=== PATIENT | female | born 2000 | race Caucasian/White ===

== ENCOUNTER 2020-07-22 17:43 | Emergency (ER) | payer BC, OTHER ==
[2020-07-22] MEDS ORDERED: IBUPROFEN 400 MG TABLET (FP) PO ONE ×2 (17:52→18:01)
[2020-07-22] MEDS ORDERED: LIDOCAINE 5% TOPICAL PATCH TP ONE (17:52)
[2020-07-22 17:59] VITALS: BP 144/88; PULSE 87; TEMP 99.2; BMI 33.3
[2020-07-22] MEDS ORDERED: LIDOCAINE 5% TOPICAL PATCH ONE (18:01)
== END 2020-07-22 18:33 ==
LOC: FER 17:43
DX: M54.5 Low back pain (principal)
CPT/HCPCS: 99283-25

== ENCOUNTER 2024-05-24 12:08 | Emergency (ER) | payer OTHER ==
[2024-05-24 12:32] VITALS: BP 126/90; PULSE 77; RESP 16; TEMP 98.2; BMI 27.4
[2024-05-24] MEDS ORDERED: ONDANSETRON *ODT* 4 MG TABLET ONE (12:54)
[2024-05-24] MEDS ORDERED: ACETAMINOPHEN 325 MG TABLET (FP) ONE (12:54)
[2024-05-24] MEDS: ACETAMINOPHEN 325 MG TABLET (FP) PO ONE (12:56)
[2024-05-24] MEDS: ONDANSETRON *ODT* 4 MG TABLET SL ONE (12:57)
== END 2024-05-24 13:18 | disposition home or self-care (01) ==
LOC: FER 12:08
DX: J10.1 Influenza due to other identified influenza virus with other respiratory manifestations (principal); R51.9 Headache, unspecified; R50.9 Fever, unspecified; R05.9 Cough, unspecified; M79.18 Myalgia, other site; R11.2 Nausea with vomiting, unspecified; R61 Generalized hyperhidrosis; Z20.822 Contact with and (suspected) exposure to COVID-19
CPT/HCPCS: 0241U-QW; 81025; 99283-25; Q0162